=== PATIENT | female | born 1965 | race Caucasian/White ===

== ENCOUNTER 2019-03-18 13:25 | Outpatient (CLI) | payer MEDICARE, MEDICAID ==
[~2019-03-18] VITALS: Ht 175.3 cm; Wt 74.3 kg
[2019-03-18 14:06] LABS: BASOPHILS % (AUTO) 0 % (0-10); EOSINOPHILS # (AUTO) 0.1 10^3/uL (0.0-0.3); EOSINOPHILS % (AUTO) 1 % (0-10); HEMATOCRIT 44 % (35-52); HEMOGLOBIN 15.3 G/DL (11.5-16.0); LYMPHOCYTES # (AUTO) 2.9 X 10^3 (1.0-4.0); LYMPHOCYTES % (AUTO) 39 % (12-44); MEAN CORPUSCULAR HEMOGLOBIN 30 PG (25-34); MEAN CORPUSCULAR HGB CONC 35 G/DL (32-36); MEAN CORPUSCULAR VOLUME 84 FL (80-99); MEAN PLATELET VOLUME 10.5 FL (7.4-10.4); MONOCYTES # (AUTO) 0.6 X 10^3 (0.0-1.0); MONOCYTES % (AUTO) 8 % (0-12); NEUTROPHILS # (AUTO) 3.8 X 10^3 (1.8-7.8); NEUTROPHILS % (AUTO) 52 % (42-75); PLATELET COUNT 343 10^3/uL (130-400); RED CELL DISTRIBUTION WIDTH 13.2 % (10.0-14.5); WHITE BLOOD COUNT 7.4 10^3/uL (4.3-11.0)
[2019-03-18 14:26] LABS: BUN/CREATININE RATIO 12; CALCIUM 9.8 MG/DL (8.5-10.1); CARBON DIOXIDE 26 MMOL/L (21-32); CHLORIDE 107 MMOL/L (98-107); CREATININE SERUM 0.75 MG/DL (0.60-1.30); GFR ESTIMATED > 60; GLUCOSE 113 MG/DL (70-105); SODIUM 140 MMOL/L (135-145)
[2019-03-18 14:28] VITALS: BP 171/99
[2019-03-18] MEDS ORDERED: MV-M1TAB57 PO (14:34)
[2019-03-18] MEDS ORDERED: MORP15TA PO (14:34)
[2019-03-18] MEDS ORDERED: MORP60TA52 PO (14:34)
== END 2019-03-18 13:55 | disposition home or self-care (01) ==
LOC: PREOP 13:25
PROVIDERS: ATTEND Otolaryngology Otolaryngology/Facial Plastic Surgery
DX: Z01.818 Encounter for other preprocedural examination (principal); J34.2 Deviated nasal septum
CPT/HCPCS: 36415; 80048; 85025; 87081; 93005

== ENCOUNTER 2019-03-25 06:14 | Day surgery (SDC) | payer MEDICARE, MEDICAID ==
[~2019-03-25] VITALS: Ht 170 cm; Wt 74.3 kg
[2019-03-25] VITALS (9 sets, daily range): BP systolic 114–157; BP diastolic 78–107
[~2019-03-25 06:14] MED LIST: MORP15TA PO; MORP60TA52 PO; MV-M1TAB57 PO
[2019-03-25] MEDS: LACTATED RINGERS 1,000 ML IV PRN ×3 (07:09→10:04)
--- NOTE | 2019-03-25 07:17 | Progress Note-Pre Operative ---
Pre-Operative Progress Note H&P Reviewed The H&P was reviewed, patient examined and no changes noted. Date Seen by Provider: Mar 25, 2019 Time Seen by Provider: 07:00 Date H&P Reviewed: Mar 25, 2019 Time H&P Reviewed: 07:00 Pre-Operative Diagnosis: Deviated nasal spetum and bilat hyper of inf turbs with nasal obstruction UMBERTO ARCEO MD Mar 25, 2019 07:17
[2019-03-25] MEDS ORDERED: fentaNYL INJECTION 100 MCG/2 ML AMP ONE (07:38)
[2019-03-25] MEDS ORDERED: MIDAZOLAM 2 MG/2 ML (VERSED) VIAL ONE (07:38)
[2019-03-25] MEDS ORDERED: COCAINE HCL 4% 2 ML SYR ONE (07:39)
[2019-03-25] MEDS ORDERED: PHENYLEPHRINE 0.5% NASAL SPR (NEO-SYNEPHRINE) REG ONE (07:39)
[2019-03-25] MEDS ORDERED: LIDOCAINE/EPI 1%-1:100,000 (XYLOCAINE) 20ML ONE (07:39)
[2019-03-25] MEDS ORDERED: fentaNYL INJECTION 100 MCG/2 ML AMP IVP ONE (08:00)
[2019-03-25] MEDS ORDERED: morphine INJ 10 MG/ML 1ML (SYR OR VIAL) IVP ONE (08:00)
[2019-03-25] MEDS ORDERED: ONDANSETRON 4 MG/2 ML (SDV) Z0FRAN IVP PRN (08:00)
[2019-03-25] MEDS ORDERED: DEXAMETHASONE 10 MG/ML (DECADRON) 1 ML VIAL ONE (08:45)
[2019-03-25] MEDS ORDERED: ONDANSETRON 4 MG/2 ML (SDV) Z0FRAN ONE (08:45)
[2019-03-25] MEDS ORDERED: LIDOCAINE PF 2% 5 ML (XYLOCAINE) VIAL ONE (08:45)
[2019-03-25] MEDS ORDERED: proPOfol 200 MG/20 ML (DIPRIVAN) VIAL IV ONE ×2 (08:45→08:56)
[2019-03-25] MEDS ORDERED: SEVOFLURANE (ULTANE) 15 ML INHAL SOLN ONE (08:46)
[2019-03-25] MEDS ORDERED: ROCURONIUM 10 MG/ML 5 ML SYRINGE IV ONE (08:46)
[2019-03-25] MEDS ORDERED: D5 1/2 NS W/KCL 20 MEQ/L 1,000 ML IV SCH (08:50)
--- NOTE | 2019-03-25 08:50 | Progress Note-Post Operative ---
Post-Operative Progess Note Surgeon (s)/Relief Manager (s) Surgeon UMBERTO ARCEO MD Relief Manager n/a Pre-Operative Diagnosis Deviated nasal spetum and bilat hyper of inf turbs with nasal obstruction Post-Operative Diagnosis same Post-Op Procedure Note Date of Procedure: Mar 25, 2019 Name of Procedure Performed: Nasal Septoplasty, Bilat Red of Inf Turbs Description & Findings Description and Findings: n/a Anesthesia Type get Estimated Blood Loss minimal Packing none. Specimen(s) collected/removed nasal septum UMBERTO ARCEO MD Mar 25, 2019 08:49
[2019-03-25] MEDS ORDERED: PROMETHAZINE INJ 25 MG/ML (PHENERGAN) AMP IVP PRN (09:00)
[2019-03-25] MEDS ORDERED: ACETAMINOPHEN 325 MG TABLET PO PRN (09:00)
[2019-03-25] MEDS ORDERED: HYDROcodone/APAP 5 MG/325 MG (LORTAB) TAB PO PRN (09:00)
[2019-03-25] MEDS ORDERED: HYDR-3812 PO (09:47)
[2019-03-25] MEDS ORDERED: AMOX-355 PO (09:47)
--- NOTE | 2019-03-25 14:08 | Anesthesia-General Post-Op ---
General Patient Condition Mental Status/LOC: Same as Preop Cardiovascular: Satisfactory Nausea/Vomiting: Absent Respiratory: Satisfactory Pain: Controlled Complications: Absent Post Op Complications Complications None Follow Up Care/Instructions Patient Instructions None needed. Anesthesia/Patient Condition Patient Condition Patient was seen after the procedure and she was doing well, no complaints, stable vital signs, no apparent adverse anesthesia problems. OMARI BIRD DO Mar 25, 2019 14:08
== END 2019-03-25 10:32 | disposition home or self-care (01) ==
LOC: SDC 06:14
PROVIDERS: ATTEND Otolaryngology Otolaryngology/Facial Plastic Surgery
DX: J34.2 Deviated nasal septum (principal); J34.3 Hypertrophy of nasal turbinates; J34.89 Other specified disorders of nose and nasal sinuses; J45.909 Unspecified asthma, uncomplicated; K21.9 Gastro-esophageal reflux disease without esophagitis; R09.81 Nasal congestion; F17.210 Nicotine dependence, cigarettes, uncomplicated; Z88.2 Allergy status to sulfonamides; Z91.048 Other nonmedicinal substance allergy status; Z79.891 Long term (current) use of opiate analgesic; Z90.49 Acquired absence of other specified parts of digestive tract; Z90.710 Acquired absence of both cervix and uterus; Z84.89 Family history of other specified conditions